=== PATIENT | male | born 1970 ===

== ENCOUNTER 2016-11-07 19:33 | Emergency (ER) | payer OTHER, BC ==
[2016-11-07 19:37] VITALS: TEMP 99
[2016-11-07] MEDS ORDERED: Oxycodone/Acetaminophen 5/325 mg Tab ONE (20:35)
[2016-11-07] MEDS ORDERED: Oxycodone/Acetaminophen 5/325 mg Tab PO ONE (20:38)
--- NOTE | 2016-11-07 20:41 | ED PDOC ---
Upper Extremity Pain/Injury Time Seen by Provider: 11/07/16 19:46 Chief Complaint (Nursing): Upper Extremity Problem/Injury Chief Complaint (Provider): right shoulder pain History Per: Patient History/Exam Limitations: no limitations Onset/Duration Of Symptoms: Hrs (1) Current Symptoms Are (Timing): Still Present Severity: Mild Additional History Per: Patient Additional Complaint(s): 46 y/o male history of hypertension presents with right shoulder pain x 1 hour. 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 He complains to pain on and behind right shoulder. Patient notes he is currently being treated for shingles, admits to "radiating" pain from right neck down right arm, but states this is new pain. Denies numbness/weakness right upper extremity. Past Medical History Reviewed: Historical Data, Nursing Documentation, Vital Signs Vital Signs: Last Vital Signs Temp 99.0 F 11/07/16 19:34 Pulse 117 H 11/07/16 19:34 Resp 18 11/07/16 19:34 BP 123/78 11/07/16 19:34 Pulse Ox 95 11/07/16 19:34 - Medical History PMH: HTN - Surgical History Surgical History: Hernia Repair, Tonsillectomy - Family History Family History: States: Unknown Family Hx - Home Medications Home Medications: Ambulatory Orders Medication Instructions Recorded Amlodipine Besylate/Benazepril 1 tab PO DAILY 11/07/16 [Amlodipine-Benazepril 10-40 mg] Hydrochlorothiazide [Microzide] 1 tab PO DAILY 11/07/16 Ibuprofen [Motrin Tab] 800 mg PO Q8 PRN #10 tab 11/07/16 - Allergies Allergies/Adverse Reactions: Allergies Allergy/AdvReac Type Severity Reaction Status Date / Time No Known Allergies Allergy Verified 11/07/16 19:34 Review of Systems ROS Statement: Except As Marked, All Systems Reviewed And Found Negative Musculoskeletal: Positive for: Shoulder Pain (right) Physical Exam - Reviewed Nursing Documentation Reviewed: Yes Vital Signs Reviewed: Yes - Physical Exam Appears: Positive for: Well, Non-toxic, No Acute Distress Head Exam: Positive for: ATRAUMATIC, NORMAL INSPECTION, NORMOCEPHALIC Skin: Positive for: Normal Color, Rash (crusted vesicular lesion right forehead) Cardiovascular/Chest: Positive for: Regular Rate, Rhythm Respiratory: Positive for: Normal Breath Sounds Pulses-Radial (L): 2+ Pulses-Radial (R): 2+ Extremity: Negative for: Normal ROM (limited ROM flexion, abduction due to pain right shoulder. Tender to palpate superior/anterior right shoulder; no obvious deformity, swelling noted. ) Neurologic/Psych: Positive for: Alert, Oriented. Negative for: Motor/Sensory Deficits - ECG O2 Sat by Pulse Oximetry: 95 Pulse Ox Interpretation: Normal - Other Rad right shoulder xray X-Ray: Viewed By De X-Ray Interpretation: calcifications, no acute findings - Progress ED Course And Treament: xray, percocet PO Patient placed in right arm sling. Patient educated on findings, discharged with rx Ibuprofen. Advised follow up PMD/ortho. Return to ED for worsening/concerning symptoms. Disposition - Clinical Impression Clinical Impression: Shoulder injury - Patient ED Disposition Is Patient to be Admitted: No Counseled Patient/Family Regarding: Studies Performed, Diagnosis, Need For Followup, Rx Given - Disposition Referrals: Jaswant Chan III, MD [Staff Provider] - Michael Bhandari Jr., MD [Primary Care Provider] - Disposition: Routine/Home Disposition Time: 21:29 Condition: IMPROVED Prescriptions: Ibuprofen [Motrin Tab] 800 mg PO Q8 PRN #10 tab PRN Reason: Pain, Moderate (4-7) Instructions: Shoulder Sprain (ED) Forms: [facility] ED School/Work Excuse
[2016-11-07 21:53] VITALS: BP 121/81; PULSE 102; RESP 16; O2SAT 96
--- NOTE | 2016-11-08 11:49 | RAD ---
PROCEDURE: Radiographs of the Right Shoulder HISTORY: injury COMPARISON: None. FINDINGS: BONES: No acute fracture. JOINTS: Preserved glenohumeral relationship, acromioclavicular degenerative change: Mild. Evidence of calcific tendinosis. SOFT TISSUES: Normal. OTHER FINDINGS: None. IMPRESSION: No acute findings related to/accounting for the clinical presentation.
== END 2016-11-07 21:54 | disposition home or self-care (01) ==
LOC: H.ER 19:33
DX: S49.91XA Unspecified injury of right shoulder and upper arm, initial encounter (principal); X50.9XXA Other and unspecified overexertion or strenuous movements or postures, initial encounter; Y99.0 Civilian activity done for income or pay; I10 Essential (primary) hypertension